=== PATIENT | male | born 1995 | race Caucasian/White ===

== ENCOUNTER 2020-01-21 03:47 | Inpatient (IN) | payer OTHER ==
[~2020-01-21] VITALS: Ht 172.7 cm; Wt 64.0 kg
[2020-01-21] MEDS ORDERED: SODIUM CHLORIDE 0.9% 1,000 ML IV ONE (04:15)
[2020-01-21 04:31] LABS: Basophils # (auto) 0 10 ^3/uL (0-0.2); Basophils % (auto) 0.3 % (0.0-2.0); Eosinophils # (auto) 0.3 10 ^3/uL (0-0.8); Eosinophils % (auto) 2.6 % (0.0-7.0); Hematocrit 35.3 % (41.0-53.0); Hemoglobin 12.3 g/dL (13.5-17.5); Lymphocytes % (auto) 26.7 % (10.0-50.0); Mean Corpuscular Hemoglobin 30.7 pg (28.0-32.0); Mean Corpuscular Hgb Conc. 34.9 g/dL (32.0-36.0); Mean Corpuscular Volume 87.9 fL (80.0-100.0); Monocytes # (auto) 0.7 10 ^3/uL (0-1.3); Monocytes % (auto) 6.3 % (0.0-12.0); Neutrophils # (auto) 7.2 10 ^3/uL (1.6-8.6); Neutrophils % (auto) 64.1 % (37.0-80.0); Platelet Count (auto) 232 10^3/uL (140-450); Red Blood Cells 4.01 10^6/uL (4.5-5.90); Red Cell Distribution Width 13.4 % (11.8-14.3); White Blood Cell 11.2 10^3/uL (4.4-10.8)
[2020-01-21] MEDS ORDERED: SODIUM CHLORIDE 0.9% 500 ML IV ONE (04:45)
[2020-01-21 04:49] LABS: Potassium 3.2 mmol/L (3.5-5.1)
[2020-01-21 04:55] LABS: INR 1.15 (0.9-1.15); Partial Thromboplastin Time 32.3 sec (23.64-32.05)
[2020-01-21 04:56] LABS: Albumin 3.1 g/dL (3.4-5.0); BUN/Creatinine Ratio 12.2; Bilirubin, Total 1.5 mg/dL (0.2-1.0); Calcium 7.2 mg/dL (8.5-10.1); Total Protein 6.3 g/dL (6.4-8.2)
[2020-01-21] MEDS ORDERED: SODIUM CHLORIDE 0.9% 1,000 ML IV SCH (05:17)
[2020-01-21] MEDS ORDERED: ACETAMINOPHEN 325 MG TAB PO PRN (05:30)
[2020-01-21] MEDS ORDERED: DOCUSATE SOD 100 MG CAP PO PRN (05:30)
[2020-01-21] MEDS: metroNIDAZOLE 500MG/100ML 100 ML IV SCH ×3 (06:18→22:00)
[2020-01-21] MEDS: HYDROcodone-ACET 5/325MG TAB PO PRN (08:35)
[2020-01-21] MEDS: MORPHINE SULF INJ 2 MG/ML SYRINGE 1ML IV PRN ×2 (11:55→22:02)
[2020-01-21] MEDS ORDERED: ceFAZolin 1GM/50ML 50 ML IV ONE (13:31)
[2020-01-21] MEDS ORDERED: MIDAZOLAM HCL 1MG/1ML-2 ML VIAL IV PRN (13:45)
[2020-01-21] MEDS ORDERED: ePHEDrine SULFATE 50 MG/ML AMP IV PRN (13:45)
[2020-01-21] MEDS ORDERED: MORPHINE SULFATE 4 MG/ML SYR/VIAL IV PRN (13:45)
[2020-01-21] MEDS ORDERED: KETOROLAC TROMETH 30 MG/ML 1ML VIAL IV ONE (13:45)
[2020-01-21] MEDS ORDERED: ONDANSETRON HCL 4 MG/2 ML VIAL IV PRN (13:45)
[2020-01-21] MEDS ORDERED: LABETALOL HCL 5 MG/ML 4ML SYRINGE IV PRN (13:45)
[2020-01-21] MEDS ORDERED: HYDROmorphone HCL 2 MG/ML VL IV PRN (13:45)
[2020-01-21] MEDS ORDERED: fentaNYL CITRATE 100 MCG/2 ML VL ONE (13:51)
[2020-01-21] MEDS ORDERED: MEPERIDINE HCL (50 MG/ML) 1 ML VIAL ONE (13:52)
[2020-01-21] MEDS ORDERED: MIDAZOLAM HCL 1MG/1ML-2 ML VIAL ONE (13:52)
[2020-01-21] MEDS ORDERED: DexAMETHasone SOD PHOS 10MG/1ML VIAL INJ ONE (14:09)
[2020-01-21] MEDS ORDERED: PROPOFOL 10 MG/ML 20 ML IV ONE (14:09)
[2020-01-21] MEDS ORDERED: HYDROmorphone HCL 2 MG/ML VL IV ONE (14:45)
[2020-01-21] MEDS ORDERED: NEOSTIGMINE 1 MG/ML INJ (10mg/10ML VIAL) ONE (14:46)
[2020-01-21] MEDS ORDERED: GLYCOPYRROLATE 0.2 MG/ML 1ML VIAL ONE (14:46)
--- NOTE | 2020-01-21 17:15 | NUR ---
Received patient on the floor. Patient shows no signs of distress at this time.
[2020-01-21] MEDS: ONDANSETRON HCL 4 MG/2 ML VIAL IV PRN ×2 (17:36→21:57)
[2020-01-21] MEDS: D5W/SOD CHL 0.45%/KCL 20MEQ 1,000 ML IV SCH (17:36)
[2020-01-21 18:07] VITALS: BP 122/74
--- NOTE | 2020-01-21 19:30 | NUR ---
Opening Shift Note Assumed care of patient, awake and alert. No S/S of distress/SOB. Patient c/o 7/10 abdominal pain that comes and goes. At this time, the patient did not request any pain medication. Bed is locked in lowest position with call light within reach. Instructed on POC and to call for assist PRN, will continue to monitor for changes Q1hr and PRN.
--- NOTE | 2020-01-21 21:55 | NUR ---
PAIN ASSESSMENT The patient c/o 8/10 consistent abdominal pain and requested pain medication. Will treat with PRN pain medication.
[2020-01-21] MEDS: ceFAZolin 1GM/50ML 50 ML IV SCH (22:03)
[2020-01-21 22:09] VITALS: BP 108/64
--- NOTE | 2020-01-21 22:40 | NUR ---
PAIN REASSESSMENT The patient's pain has improved to 0/10. Patient is resting comfortably in bed.
[2020-01-22] MEDS: D5W/SOD CHL 0.45%/KCL 20MEQ 1,000 ML IV SCH ×3 (00:45→13:15)
[2020-01-22 05:00] VITALS: BP 103/57
[2020-01-22 06:00] LABS: Basophils # (auto) 0 10 ^3/uL (0-0.2); Basophils % (auto) 0.1 % (0.0-2.0); Eosinophils # (auto) 0 10 ^3/uL (0-0.8); Hematocrit 37.9 % (41.0-53.0); Lymphocytes # (auto) 0.7 10 ^3/uL (0.4-5.4); Lymphocytes % (auto) 5.6 % (10.0-50.0); Mean Corpuscular Hemoglobin 30.5 pg (28.0-32.0); Mean Corpuscular Hgb Conc. 34.3 g/dL (32.0-36.0); Mean Corpuscular Volume 88.8 fL (80.0-100.0); Monocytes # (auto) 0.6 10 ^3/uL (0-1.3); Monocytes % (auto) 4.7 % (0.0-12.0); Neutrophils # (auto) 10.8 10 ^3/uL (1.6-8.6); Neutrophils % (auto) 89.6 % (37.0-80.0); Platelet Count (auto) 266 10^3/uL (140-450); Red Blood Cells 4.27 10^6/uL (4.5-5.90); Red Cell Distribution Width 13.1 % (11.8-14.3); White Blood Cell 12.1 10^3/uL (4.4-10.8)
[2020-01-22] MEDS: ceFAZolin 1GM/50ML 50 ML IV SCH (06:17)
[2020-01-22] MEDS: metroNIDAZOLE 500MG/100ML 100 ML IV SCH ×3 (06:17→21:56)
[2020-01-22 06:24] LABS: Potassium 4.3 mmol/L (3.5-5.1)
[2020-01-22 06:31] LABS: Albumin 3.2 g/dL (3.4-5.0); BUN/Creatinine Ratio 9.4; Calcium 8.7 mg/dL (8.5-10.1); Magnesium 2.2 mg/dL (1.6-2.6)
--- NOTE | 2020-01-22 07:00 | NUR ---
Opening Shift Note Received report on the patient. Awake lying in bed. Patient shows no signs of distress at this time. Discussed the plan with the patient. Bed in lowest position, side rails up x2, and the call light is within reach.
[2020-01-22 08:41] VITALS: BP 99/118
[2020-01-22] MEDS: HYDROcodone-ACET 5/325MG TAB PO PRN ×2 (11:07→20:17)
[2020-01-22 12:22] VITALS: BP 107/59
[2020-01-22] MEDS ORDERED: cefTRIAXone 1GM/50ML D5W 50 ML IV ONE (13:15)
[2020-01-22 16:55] VITALS: BP 103/63
--- NOTE | 2020-01-22 19:15 | NUR ---
OPENING SHIFT NOTE Assumed care of patient who is A&O x4. Currently on RA with no s/s of distress. Reports 5/10 abdominal pain related to surgical procedure. Pain management options discussed. PIV in right AC is intact and patent. IVF infusing as ordered. Three dressing to abdomen at midline are CDI. Abdominal binder in place. POC discussed and patient verbalizes understanding. Bed is in low position with side rails up x2. Call light is within reach and patient encouraged to call for assistance when needed. Will continue to monitor for changes PRN.
--- NOTE | 2020-01-22 19:20 | NUR ---
IV removal IV to left forearm is painful with flushing. [place] streak noted above insertion site. DC'd with clean sterile technique, catheter fully intact. Pressure dressing applied to site. Patient tolerated well.
--- NOTE | 2020-01-22 20:30 | NUR ---
PAIN Patient medicated with [place] 5/325 as ordered for 5/10 abdominal pain. Will reassess to ensure effectiveness.
--- NOTE | 2020-01-22 21:30 | NUR ---
PAIN REASSESSMENT Pain reassessed after the administration of [place] 5/325. Patient denies pain at this time. Will continue to monitor for changes.
[2020-01-22 22:01] VITALS: BP 107/52
[2020-01-23] MEDS: D5W/SOD CHL 0.45%/KCL 20MEQ 1,000 ML IV SCH (03:33)
[2020-01-23 05:10] VITALS: BP 91/54
[2020-01-23] MEDS: metroNIDAZOLE 500MG/100ML 100 ML IV SCH (05:59)
[2020-01-23 06:10] LABS: Basophils # (auto) 0 10 ^3/uL (0-0.2); Basophils % (auto) 0.2 % (0.0-2.0); Eosinophils # (auto) 0 10 ^3/uL (0-0.8); Eosinophils % (auto) 0.5 % (0.0-7.0); Hematocrit 35.7 % (41.0-53.0); Hemoglobin 12.6 g/dL (13.5-17.5); Lymphocytes # (auto) 2.5 10 ^3/uL (0.4-5.4); Mean Corpuscular Hemoglobin 31.1 pg (28.0-32.0); Mean Corpuscular Hgb Conc. 35.3 g/dL (32.0-36.0); Mean Corpuscular Volume 88.1 fL (80.0-100.0); Monocytes # (auto) 0.5 10 ^3/uL (0-1.3); Monocytes % (auto) 5.9 % (0.0-12.0); Neutrophils # (auto) 6.1 10 ^3/uL (1.6-8.6); Neutrophils % (auto) 66.4 % (37.0-80.0); Platelet Count (auto) 240 10^3/uL (140-450); Red Blood Cells 4.05 10^6/uL (4.5-5.90); White Blood Cell 9.2 10^3/uL (4.4-10.8)
[2020-01-23] MEDS ORDERED: cefTRIAXone 1GM/50ML D5W 50 ML IV SCH (09:00)
[2020-01-23 09:11] VITALS: BP 91/49
[2020-01-23] MEDS: MORPHINE SULF INJ 2 MG/ML SYRINGE 1ML IV PRN (09:46)
--- NOTE | 2020-01-23 10:35 | NUR ---
PT SEEN BY DR. GOFF, SHE SAID PT CAN GO HOME AND WILL FOLLOW UP WITH DR. SAMANIEGO.
[2020-01-23] MEDS ORDERED: LEVO500T21 PO (11:36)
[2020-01-23] MEDS ORDERED: METR500T PO (11:36)
[2020-01-23] MEDS ORDERED: DOCU100C8 PO (11:36)
[2020-01-23 12:36] VITALS: BP 100/52
[2020-01-23 13:00] VITALS: BP 100/52
--- NOTE | 2020-01-23 13:33 | NUR ---
Discharge instructions given as ordered. Encourage to follow up with Dr. Singh in 1 week, office is close at this time, pt instructed to call for his appointment, tel # provided, pt verbalized understanding. Pt was instructed to follow up with his primary doctor. All questions and concerns addressed. Patient verbalized understanding. Medication reconciliation form completed and copy given to patient. IV removed with catheter intact, pressure dressing applied. Patient taken to vehicle via wheelchair with all personal belongings, accompanied by staff and family member. No distress noted at time of departure.
== END 2020-01-23 13:30 | disposition home or self-care (01) | DRG 854 ==
LOC: ER 03:47 → OVERFLOW 03:48 → TELE-WESTW 17:19 → WEST WING 17:53
PROVIDERS: ADMIT Hospitalist; ATTEND Internal Medicine
PROC: 0DTJ4ZZ Resection of Appendix, Percutaneous Endoscopic Approach (ICD-10-PCS; principal; 2020-01-21 14:01)
DX: A41.9 Sepsis, unspecified organism (principal); K35.80 Unspecified acute appendicitis; E87.6 Hypokalemia
CPT/HCPCS: 36415; 71045; 74176; 80053; 83735; 84132; 85025; 85610; 85730; 86850; 86900; 86901; 88302; 96361; 96365; G0378; J0690; J0696; J1100; J1885; J2250; J2405; J2704; J3490